=== PATIENT | female | born 1985 | race Caucasian/White ===

== ENCOUNTER 2016-03-09 08:21 | Inpatient (IN) | payer OTHER ==
[~2016-03-09] VITALS: Ht 172.7 cm; Wt 92.5 kg
[2016-03-09] MEDS ORDERED: SYNTHROID150 MCG PO (09:10)
[2016-03-09] MEDS ORDERED: PRENATAL TABLE1 EAC2 PO (09:10)
[2016-03-09 09:13] LABS: ABSOLUTE BASOPHIL COUNT 0 /CUMM (0.0-0.2); ABSOLUTE EOSINOPHIL COUNT 0.2 /CUMM (0.0-0.7); ABSOLUTE GRANULOCYTE CT 5.6 /CUMM (1.4-6.5); ABSOLUTE LYMPH COUNT 1.8 /CUMM (1.2-3.4); ABSOLUTE MONOCYTE COUNT 0.5 /CUMM (0.10-0.60); BASOPHIL % 0.2 % (0.0-2.0); EOSINOPHIL % 2.6 % (0-5); GRANULOCYTE % 68.7 % (42.2-75.2); HEMATOCRIT 36.3 % (37-47); MEAN CORPUSCULAR HGB 30.2 PG (27.0-31.0); MEAN CORPUSCULAR HGB CONC 34.1 G/DL (33.0-37.0); MEAN CORPUSCULAR VOLUME 88.6 FL (81.0-99.0); MEAN PLATELET VOLUME 9.9 FL (7.4-10.4); PLATELET COUNT 213 /CUMM (130-400); RED BLOOD CELL CT 4.11 /CUMM (4.20-5.40); WHITE BLOOD CELL COUNT 8.1 /CUMM (4.8-10.8)
--- NOTE | 2016-03-10 09:41 | History & Physical ---
General Information and HPI MD Statement: I have seen and personally examined EFRAIN OWENS and documented this H&P. The patient is a 30 year old female at [40] weeks and []3 days gestation who presented with a chief complaint of [IOL]. Source of Information: police History of Present Illness: 30yo lmp 05/31/15 EDC 03/06/2017 at 40w3d for IOL secondary to macrosomia and postdates. care complete and remarkable for LGA baby; EFW 8lbs at 37 wk. Normal GCT. 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 EENTM: Reports: no symptoms. Cardiovascular: Reports: no symptoms. Respiratory: Reports: no symptoms. GI: Reports: no symptoms. Genitourinary: Reports: no symptoms. Musculoskeletal: Reports: no symptoms. Skin: Reports: no symptoms. Neurological/Psychological: Reports: no symptoms. Hematologic/Endocrine: Reports: no symptoms. Immunologic/Allergic: Reports: no symptoms. All Other Systems: Reviewed and Negative Exam & Diagnostic Data Obstetric Exam Wgt Gained During : 45 Pelvimetry: gynecoid Dilation (cm): 0 Effacement (%): 0 Station: -3 Membranes: intact Fluid: unknown Fundal Height (cm): 42 Multiple Gestation? No Contractions: no Infant #1 - FHR Baseline: 140 Category: 1 Estimated Weight: 9 Presentation: cephalic Infant #2 - Category: 1 Estimated Weight: 0 Presentation: h Patient for Induction? Yes Perez Score Perez Score Response Value Cervix Position: posterior 0 Cervix Consistency: soft 2 Cervix Effacement: 0-30% 0 Cervix Dilation: closed 0 Cervix Station: -3 0 Total 2 Physical Exam: HEENT: NCAT Chest: CTA CV: nl s1s2 Abd: gravid, cephalic, EFW 9 Ext: no c/c/e Labs Blood Type & Rh: A pos Antibody Screen: neg Hct/Hgb & Platelets #1: Hct/Hgb & Platelets #2: Rubella: imm VDRL #1: nr VDRL #2: nr HbsAg: neg HIV #1: neg HIV #2 neg 1 Hr P Group B Strep: neg Initial Ultrasound: wnl Anatomy Ultrasound: wnl Ultrasound for EFW: 8 Genetic Testing: neg Assessment/Plan Assessment/Plan: macrosomia poor Perez score Misoprostol cervical ripening As Ranked By This Provider Problem List: 1. Core Measures/Miscellaneous Venous Thromboembolism VTE Risk Factors: / VTE Contraindications: No Contraindications VTE Prophylaxis Ordered Inpt: Early Ambulation VTE Diagnosis: No Beta Hair Is Beta Hair a Home Med? No Antibiotics Is Patient on Antibiotics? No
--- NOTE | 2016-03-10 09:43 | Labor & Delivery Summary ---
Delivery Summary Vaginal Delivery: Vaginal: vertex Episiotomy/Lacerations: Episiotomy/Lacerations: e[pis Type: rml Repair: 3-0 int Anesthesia: local Placenta: Placenta: spontanteous, normal, 3 vessel Anesthesia: epi Baby's Weight: 10-11 Apgars - 1 Min: 9 Apgars - 5 Min: 9
[2016-03-11 09:59] LABS: ABSOLUTE BASOPHIL COUNT 0 /CUMM (0.0-0.2); ABSOLUTE EOSINOPHIL COUNT 0.1 /CUMM (0.0-0.7); ABSOLUTE LYMPH COUNT 1.5 /CUMM (1.2-3.4); ABSOLUTE MONOCYTE COUNT 0.6 /CUMM (0.10-0.60); BASOPHIL % 0.3 % (0.0-2.0); EOSINOPHIL % 1.7 % (0-5); HEMATOCRIT 33.4 % (37-47); MEAN CORPUSCULAR HGB 30.1 PG (27.0-31.0); MEAN CORPUSCULAR HGB CONC 33.7 G/DL (33.0-37.0); MEAN CORPUSCULAR VOLUME 89.2 FL (81.0-99.0); MEAN PLATELET VOLUME 10.4 FL (7.4-10.4); PLATELET COUNT 163 /CUMM (130-400); RBC DISTRIBUTION WIDTH 14.8 % (11.5-14.5); RED BLOOD CELL CT 3.75 /CUMM (4.20-5.40); WHITE BLOOD CELL COUNT 8.2 /CUMM (4.8-10.8)
[2016-03-12] MEDS ORDERED: DOCUSATE SODIU100 M3 PO (02:54)
[2016-03-12] MEDS ORDERED: IBUPROFEN800 M1 PO (02:54)
== END 2016-03-12 11:29 | DRG 775 ==
LOC: GNO 08:21
PROVIDERS: ADMIT Obstetrics & Gynecology
PROC: 10E0XZZ Delivery of Products of Conception, External Approach (ICD-10-PCS; principal; 2016-03-09)
PROC: 0W8NXZZ Division of Female Perineum, External Approach (ICD-10-PCS; principal; 2016-03-09)
DX: O36.63X0 Maternal care for excessive fetal growth, third trimester, not applicable or unspecified (principal); Z37.0 Single live birth; Z3A.40 40 weeks gestation of pregnancy
CPT/HCPCS: GNOP; GNOS; 81001; J2210; J7120